=== PATIENT | male | born 1945 | race Caucasian/White ===

== ENCOUNTER 2020-05-16 07:25 | Day surgery (SDC) | payer MEDICARE, BC ==
[2020-05-13 16:03] VITALS: BMI 37.5
[2020-05-16 07:57] VITALS: TEMP 97.2
[2020-05-16] MEDS: LACTATED RINGERS 1,000 ML IV SCH ×2 (08:06→08:39)
--- NOTE | 2020-05-16 08:35 | P.GSHP ---
History of Present Illness H&P Date: 05/16/20 CHIEF COMPLAINT: GERD and colon screen HISTORY OF PRESENT ILLNESS: The patient is a 75-year-old male who presents with gastroesophageal reflux disease and need for colon screen. Upper and lower endoscopy were offered for further evaluation and management. PAST MEDICAL HISTORY: Please see list. PAST SURGICAL HISTORY: Please see list. MEDICATIONS: Please see list. ALLERGIES: Please see list. SOCIAL HISTORY: No illicit drug use FAMILY HISTORY: No reports of Crohn disease or ulcerative colitis. REVIEW OF ORGAN SYSTEMS: CONSTITUTIONAL: No reports of fevers or chills. GI: Denies any blood in stools or constipation. PHYSICAL EXAM: VITAL SIGNS: Stable GENERAL: Well-developed pleasant in no acute distress. HEENT: No scleral icterus. Extraocular movements grossly intact. Moist buccal mucosa. NECK: Supple without lymphadenopathy. CHEST: Unlabored respirations. Equal bilateral excursions. CARDIOVASCULAR: Regular rate and rhythm. Distal 2+ pulses. ABDOMEN: Soft, nondistended. MUSCULOSKELETAL: No clubbing, cyanosis, or edema. ASSESSMENT: 1. Gastroesophageal reflux disease 2. Colon screen. PLAN: 1. Recommend proceeding with an upper and lower endoscopy Past Medical History Past Medical History: Hearing Disorder / Deafness, Hyperlipidemia, Hypertension, Prostate Disorder, Sleep Apnea/CPAP/BIPAP Additional Past Medical History / Comment(s): has cpap machine History of Any Multi-Drug Resistant Organisms: None Reported Past Surgical History: Heart Catheterization Additional Past Surgical History / Comment(s): LESION ON BACK,LAPAROSCOPIC EXAM Past Anesthesia/Blood Transfusion Reactions: Motion Sickness Smoking Status: Former smoker - Past Family History Mother Family Medical History: Cancer Medications and Allergies Home Medications Medication Instructions Recorded Confirmed Type Aspirin 81 mg PO DAILY 09/02/15 05/16/20 History Lisinopril [Zestril] 20 mg PO DAILY 09/02/15 05/16/20 History Ezetimibe [Zetia] 10 mg PO DAILY 05/13/20 05/16/20 History Red Yeast Rice 600 mg PO DAILY 05/13/20 05/16/20 History Tamsulosin [Flomax] 0.4 mg PO DAILY 05/13/20 05/16/20 History Allergies Allergy/AdvReac Type Severity Reaction Status Date / Time No Known Allergies Allergy Verified 05/16/20 07:51 Surgical - Exam Vital Signs Temp Pulse Resp BP Pulse Ox 97.2 F L 92 16 121/81 95 05/16/20 07:56 05/16/20 07:56 05/16/20 07:56 05/16/20 07:56 05/16/20 07:56
[2020-05-16] MEDS ORDERED: PROPOFOL 10 MG/ML 20 ML VIAL IV ONE (08:40)
[2020-05-16] MEDS ORDERED: LIDOCAINE 1% INJ 10MG/ML (20 ML MDV) ONE (08:40)
[2020-05-16] MEDS ORDERED: GLYCOPYRROLATE 0.2 MG/ML 2 ML VIAL ONE (08:40)
--- NOTE | 2020-05-16 08:57 | P.PCN ---
Date of Procedure: 05/16/20 Description of Procedure: PREOPERATIVE DIAGNOSIS: Gastroesophageal reflux disease. Morbid obesity. POSTOPERATIVE DIAGNOSIS: Morbid obesity. Gastritis. Gastroesophageal reflux disease. OPERATION: Esophagogastroduodenoscopy with biopsies along antrum. SURGEON: Manju Yeh MD ANESTHESIA: MAC. INDICATIONS: The patient is a 75-year-old male who presents with a history of reflux disease. Benefits and risks of the procedure were described. Informed consent was obtained. DESCRIPTION: The patient was brought into the endoscopy suite and laid in the left lateral decubitus position. An Olympus gastroscope was passed along the posterior oropharynx down to the distal esophagus where the squamocolumnar junction was encountered at 42 cm from the incisors. The stomach was entered and no bile reflux was found. Additional findings are listed below. Biopsies with cold forceps were obtained of the antrum. The first through third portion of the duodenum was examined and unremarkable. Retroflexion of the scope confirmed Hill grade 2 lower esophageal valve. The squamocolumnar junction demonstrated no LA grade A erosive esophagitis. The stomach was desufflated. The patient tolerated the procedure well. FINDINGS: Squamocolumnar junction 42 cm from the incisors. Diaphragmatic hiatus at 42 cm. Hill grade 2 lower esophageal valve. No LA grade A erosive esophagitis. No active duodenitis. Chronic gastritis with recent bleed RECOMMENDATIONS: Upper endoscopy as needed.
--- NOTE | 2020-05-16 09:08 | P.PCN ---
Date of Procedure: 05/16/20 Description of Procedure: PREOPERATIVE DIAGNOSIS: Colonoscopy screening. POSTOPERATIVE DIAGNOSIS: Colonoscopy screening. OPERATION: Colonoscopy to the cecum, ileocecal valve and appendiceal orifice. SURGEON: Manju Yeh MD. ANESTHESIA: MAC. INDICATIONS: The patient is a 75-year-old male who presents for his first colonoscopy screening. Benefits and risks were described and informed consent was obtained. DESCRIPTION OF PROCEDURE: The patient had undergone Gatorade, MiraLAX and Dulcolax prep. He had been brought into the operating room and laid in the left lateral decubitus position. After adequate intravenous sedation, the rectum was examined with 2% lidocaine jelly. The prostate was without nodularity. No external hemorrhoids were encountered. The rectal tone was within normal limits. No lesions were palpated in the rectal vault. An Olympus colonoscope was advanced until the cecum, ileocecal valve and appendiceal orifice were clearly viewed. The prep was excellent. No scattered diverticulosis was encountered. No colonic polyps were found. No evidence of focal colitis was found. Retroflexion of the scope demonstrated grade 1 internal hemorrhoids without active bleeding or inflammation. The colon was desufflated. The patient had tolerated the procedure well. Withdrawal time was over 6 minutes. FINDINGS: Aronchick preparation quality scale 1 (1-5) Internal hemorrhoids, grade 1 No external prolapsed hemorrhoids. No arteriovenous malformations. No adenomatous polyps. No focal colitis. RECOMMENDATIONS: Lower endoscopy in 10 2019 Plan - Discharge Summary Discharge Rx Participant: No New Discharge Prescriptions: Continue Aspirin 81 mg PO DAILY Lisinopril [Zestril] 20 mg PO DAILY Tamsulosin [Flomax] 0.4 mg PO DAILY Red Yeast Rice 600 mg PO DAILY Ezetimibe [Zetia] 10 mg PO DAILY Discharge Medication List Aspirin 81 mg PO DAILY 09/02/15 [History] Lisinopril [Zestril] 20 mg PO DAILY 09/02/15 [History] Ezetimibe [Zetia] 10 mg PO DAILY 05/13/20 [History] Red Yeast Rice 600 mg PO DAILY 05/13/20 [History] Tamsulosin [Flomax] 0.4 mg PO DAILY 05/13/20 [History] Follow up Appointment(s)/Referral(s): Manju Yeh MD [STAFF PHYSICIAN] - 06/04/20 Patient Instructions/Handouts: *[facility] - (Anesthesia) Endoscopy Discharge Instructions Activity/Diet/Wound Care/Special Instructions: Repeat colonoscopy 10 years2019 Discharge Disposition: HOME SELF-CARE
[2020-05-16 09:27] VITALS: BP 121/88; PULSE 84; RESP 16
== END 2020-05-16 09:57 | disposition home or self-care (01) ==
LOC: ORWHC2ENDO 07:25
PROVIDERS: ATTEND Surgery Plastic and Reconstructive Surgery
DX: Z12.11 Encounter for screening for malignant neoplasm of colon (principal); K57.30 Diverticulosis of large intestine without perforation or abscess without bleeding; K64.0 First degree hemorrhoids; K29.50 Unspecified chronic gastritis without bleeding; E66.01 Morbid (severe) obesity due to excess calories; Z68.37 Body mass index [BMI] 37.0-37.9, adult; K21.9 Gastro-esophageal reflux disease without esophagitis; H91.90 Unspecified hearing loss, unspecified ear; E78.5 Hyperlipidemia, unspecified; N40.0 Benign prostatic hyperplasia without lower urinary tract symptoms; I10 Essential (primary) hypertension; G47.33 Obstructive sleep apnea (adult) (pediatric); Z99.89 Dependence on other enabling machines and devices; Z98.890 Other specified postprocedural states; Z87.891 Personal history of nicotine dependence; Z80.9 Family history of malignant neoplasm, unspecified; Z79.82 Long term (current) use of aspirin; Z79.899 Other long term (current) drug therapy
CPT/HCPCS: 88305; 43239; J2001; J2704; G0121

== ENCOUNTER → 2020-06-10 | Outpatient (CLI) | payer MEDICARE, BC ==
--- NOTE | 2020-06-10 09:51 | NM ---
EXAMINATION TYPE: NM hepatobiliary w EF DATE OF EXAM: 06/10/2020 COMPARISON: NONE HISTORY: Right upper quadrant pain TECHNIQUE: After the intravenous administration of 4.5 mCi Tc 99m Mebrofenin hepatobiliary scintigrap hy is performed. Immediate images post injection. FINDINGS: There is satisfactory initial accumulation of tracer by the liver. The gallbladder is visualized wit hin 26 minutes. The small bowel activity is noted within 12 minutes. At one hour 8 ounces of oral e nsure plus is given to mimic CCK and gallbladder ejection fraction is calculated at 47 %, in the norm al range. Therefore there is no scintigraphic evidence of cystic or common bile duct obstruction to suggest acute cholecystitis or gallbladder dyskinesia. IMPRESSION: Exam is within normal limits.
== END | disposition home or self-care (01) ==
LOC: RADNMMAIN 06:35
PROVIDERS: ATTEND Surgery Plastic and Reconstructive Surgery
DX: R10.11 Right upper quadrant pain (principal)
CPT/HCPCS: 78226; A9537

== ENCOUNTER → 2020-06-18 | Outpatient (CLI) | payer MEDICARE, BC ==
--- NOTE | 2020-06-18 11:05 | US ---
EXAMINATION TYPE: US gallbladder DATE OF EXAM: 06/18/2020 COMPARISON: NONE CLINICAL HISTORY: 75-year-old male R10.11 right upper quad pain. TECHNIQUE: Multiple sonographic images of the right or quadrant are obtained. FINDINGS: EXAM MEASUREMENTS: Liver Length: 13.9 cm Gallbladder Wall: 0.3 cm CBD: obscured by overlying bowel/obesity Right Kidney: 12.6 x 6.0 x 5.5 cm Director Industrial Relations notes: Limitation due to morbid obesity with large abdomen and severe overlying bowel gas . Pancreas: Obscured by bowel gas Liver: very limited visualization, attenuating, probable focal fatty sparing adjacent to gallbladder . Gallbladder: 3 mm echogenic nodular focus along the right lateral gallbladder wall shows no posterior shadowing, possible gallbladder wall polyp. No abnormal gallbladder distention. Wall thickness is up per limits of normal at 3 mm. No surrounding fluid. Evidence for sonographic Bentley's sign: no CBD: unable to visualize Right Kidney: Hypoechoic round lesion measuring 5.7 x 4.7 x 5.7 cm. No hydronephrosis. IMPRESSION: 1. Limited exam as above. 2. Moderate to severe hepatic steatosis. 3. Suspect a 3 mm gallbladder wall polyp. 3 month follow-up ultrasound recommended to reassess. 4. The bile duct could not be visualized due to the exam limitations. 5. A large 5.7 cm round lesion involving the lower pole of the right kidney. Suspect a cyst with inte rnal echoes representing debris. This should also be reassessed at the 3 month follow-up as well as a solid mass is a less likely possibility.
== END | disposition home or self-care (01) ==
LOC: RADUSWWP 07:03
PROVIDERS: ATTEND Surgery Plastic and Reconstructive Surgery
DX: K76.0 Fatty (change of) liver, not elsewhere classified (principal); E66.01 Morbid (severe) obesity due to excess calories; K82.8 Other specified diseases of gallbladder; N28.9 Disorder of kidney and ureter, unspecified
CPT/HCPCS: 76705

== ENCOUNTER 2020-09-26 10:21 | Day surgery (SDC) | payer MEDICARE, BC ==
[2020-09-20 14:40] VITALS: BMI 37.5
--- NOTE | 2020-09-26 05:54 | P.GSHP ---
History of Present Illness H&P Date: 09/26/20 CHIEF COMPLAINT: Cholecystitis HISTORY OF PRESENT ILLNESS: The patient is a 75-year-old male who presents with history of epigastric including right upper quadrant abdominal pain. He underwent diagnostic studies for the gallbladder. Separately his clinical picture was consistent with cholecystitis. Now he presents for surgical intervention. PAST MEDICAL HISTORY: Please see list PAST SURGICAL HISTORY: Please see list MEDICATIONS: Please see list ALLERGIES: Denies. SOCIAL HISTORY: No illicit drug use or recent tobacco use FAMILY HISTORY: Pertinent for gallbladder disease REVIEW OF ORGAN SYSTEMS: CONSTITUTIONAL: No reports of fevers or chills. HEENT: Denies any troubles with the vision or hearing. RESPIRATORY: No recent pneumonias. CARDIOVASCULAR: Denies current chest pain or palpitations GI: No blood in stools or constipation. MUSCULOSKELETAL: Has occasional joint pain including back pain. PHYSICAL EXAM: VITAL SIGNS: Afebrile vital signs stable GENERAL: Well-developed pleasant male in no acute distress. HEENT: No scleral icterus. Extraocular movements grossly intact. Moist buccal mucosa. NECK: Supple without lymphadenopathy. CHEST: Unlabored respirations. Equal bilateral excursions. CARDIOVASCULAR: Regular rate regular rhythm rhythm. Distal 2+ pulses. ABDOMEN: Soft, nondistended. MUSCULOSKELETAL: No clubbing, cyanosis, or edema. NEURO : No focal or lateralizing signs. Cranial nerves II-12 within normal limits. PSYCH: Alert and oriented to person, place and time. SKIN: Well perfused. Good skin turgor. ASSESSMENT: 1. Symptomatic gallstones PLAN: 1. Will need a robotic cholecystectomy possible open. Benefits and risks were described. 2. Heparin for DVT prophylaxis 5000 units. 3. Antibiotic prophylaxis. Past Medical History Past Medical History: Hearing Disorder / Deafness, Hyperlipidemia, Hypertension, Prostate Disorder, Sleep Apnea/CPAP/BIPAP Additional Past Medical History / Comment(s): gallstone, has cpap machine, History of Any Multi-Drug Resistant Organisms: None Reported Past Surgical History: Heart Catheterization Additional Past Surgical History / Comment(s): LESION ON BACK, Past Anesthesia/Blood Transfusion Reactions: No Reported Reaction Smoking Status: Former smoker - Past Family History Mother Family Medical History: Cancer Medications and Allergies Home Medications Medication Instructions Recorded Confirmed Type Aspirin 81 mg PO DAILY 09/02/15 09/20/20 History Lisinopril [Zestril] 20 mg PO QAM 09/02/15 09/20/20 History Ezetimibe [Zetia] 10 mg PO DAILY 05/13/20 09/20/20 History Red Yeast Rice 600 mg PO DAILY 05/13/20 09/20/20 History Tamsulosin [Flomax] 0.4 mg PO DAILY 05/13/20 09/20/20 History [place]-3 Fatty Acids/Fish Oil [Fish 1 each PO DAILY 09/20/20 09/20/20 History Oil 1,000 mg Softgel] Allergies Allergy/AdvReac Type Severity Reaction Status Date / Time Actfdai-Caf-Qgv Reductase AdvReac muscle pain Verified 09/20/20 14:43 Inhibitor
[~2020-09-26 10:21] MED LIST: DEXAMETHASONE SOD PHOSPHATE 4 MG/ML 1 ML VIAL IV ONE; HEPARIN SODIUM,PORCINE 5,000 UNIT/ML 1 ML VIAL SQ PRN; LACTATED RINGERS 1,000 ML IV SCH; LIDOCAINE 1% (10MG/ML) FOR IV START INTRADERMA PRN; ONDANSETRON 4 MG/2 ML VIAL IVP ONE
[2020-09-26] MEDS ORDERED: INDOCYANINE GREEN 25 MG VIAL IV PRN (10:50)
[2020-09-26] MEDS ORDERED: TAMSULOSIN 0.4 MG CAP.ER.24H PO PRN (10:50)
[2020-09-26] MEDS ORDERED: MELOXICAM 7.5 MG TAB PO PRN (10:50)
[2020-09-26] MEDS ORDERED: ACETAMINOPHEN TAB 500 MG TAB PO PRN (10:50)
[2020-09-26 11:43] LABS: Basophils % (A) 0 %; Eosinophils # (A) 0.1 k/uL (0-0.7); Eosinophils % (A) 2 %; HCT 45.9 % (39.0-53.0); HGB 15.1 gm/dL (13.0-17.5); Lymphocytes # (A) 2.4 k/uL (1.0-4.8); Lymphocytes % (A) 33 %; MCHC 32.8 g/dL (31.0-37.0); MCV 91.2 fL (80.0-100.0); Mean Platelet Volume 7.6; Monocytes # (A) 0.4 k/uL (0-1.0); Monocytes % (A) 6 %; Neutrophils # (A) 4.1 k/uL (1.3-7.7); Neutrophils % (A) 57 %; Platelet Count 224 k/uL (150-450); RBC 5.03 m/uL (4.30-5.90); RDW 12.7 % (11.5-15.5); WBC 7.2 k/uL (3.8-10.6)
[2020-09-26 11:53] LABS: ALT 26 U/L (4-49); AST 23 U/L (17-59); African American GFR (CKD) >90 (>60 ml/min/1.73 sqM); Albumin 4.2 g/dL (3.5-5.0); Alkaline Phosphatase 63 U/L (38-126); Anion Gap 10 mmol/L; Blood Urea Nitrogen 16 mg/dL (9-20); Calcium 9.5 mg/dL (8.4-10.2); Carbon Dioxide 26 mmol/L (22-30); Chloride 104 mmol/L (98-107); Glucose 98 mg/dL (74-99); Non-African American GFR(CKD) 85 (>60 ml/min/1.73 sqM); Potassium 4.3 mmol/L (3.5-5.1); Sodium 140 mmol/L (137-145); Total Bilirubin 0.7 mg/dL (0.2-1.3); Total Protein 6.8 g/dL (6.3-8.2)
[2020-09-26] MEDS ORDERED: PHENYLEPHRINE-0.9% NACL SYG 1,000 MCG/10 ML SYRINGE ONE (12:59)
[2020-09-26] MEDS ORDERED: ePHEDrine SULFATE/0.9% NACL/PF 50 MG/5 ML SYRINGE IV ONE (12:59)
[2020-09-26] MEDS ORDERED: LIDOCAINE 1% INJ 10MG/ML (20 ML MDV) ONE (12:59)
[2020-09-26] MEDS ORDERED: PROPOFOL 10 MG/ML 20 ML VIAL IV ONE (12:59)
[2020-09-26] MEDS ORDERED: ROCURONIUM 10 MG/ML (5 ML VIAL) IV ONE (12:59)
[2020-09-26] MEDS ORDERED: MIDAZOLAM 2 MG/2 ML VIAL ONE (12:59)
[2020-09-26] MEDS ORDERED: GLYCOPYRROLATE 0.2 MG/ML 2 ML VIAL ONE (12:59)
[2020-09-26] MEDS ORDERED: SUCCINYLCHOLINE CHLORIDE 100 MG/5 ML SYR IV ONE (12:59)
[2020-09-26] MEDS ORDERED: fentaNYL (PF) 50 MCG/ML 2 ML AMP ONE (12:59)
[2020-09-26] MEDS ORDERED: NEOSTIGMINE 1 MG/ML 10 ML VIAL ONE (12:59)
[2020-09-26] MEDS ORDERED: BUPIVACAIN-EPI 0.5%-1:200,000 30 ML VIAL SQ ONE (13:28)
[2020-09-26 14:21] VITALS: TEMP 97.8
[2020-09-26] MEDS ORDERED: HYDROmorphone 1 MG/ML 1 ML SYRINGE IVP ONE (14:22)
[2020-09-26] MEDS: HYDROmorphone 0.5 MG/0.5 ML SYRINGE IVP PRN ×3 (14:28→14:40)
--- NOTE | 2020-09-26 14:30 | P.OP ---
Date of Procedure: 09/26/20 Description of Procedure: SURGEON: MANJU YEH MD PREOPERATIVE DIAGNOSES: 1. Chronic cholecystitis 2. Right upper quadrant abdominal pain 3. Hypertensive heart disease 4. Obstructive uropathy due to prostate disorder 5. Morbid obesity due to excess calories, BMI 38.5 6. Obstructive sleep apnea 7. Hyperlipidemia POSTOPERATIVE DIAGNOSES: 1. Chronic cholecystitis 2. Right upper quadrant abdominal pain 3. Hypertensive heart disease 4. Obstructive uropathy due to prostate disorder 5. Morbid obesity due to excess calories, BMI 38.5 6. Obstructive sleep apnea 7. Hyperlipidemia 8. Peritoneal adhesions bilateral lower abdomen 9. Peritoneal adhesions right upper quadrant 10. Hepatomegaly OPERATION: 1. Robotic-assisted da Olesya Xi laparoscopic lysis of adhesions 2. Robotic-assisted da Olesya Xi laparoscopic cholecystectomy, multiport with FIREFLY ESTIMATED BLOOD LOSS: 5 mL. SPECIMENS REMOVED: Gallbladder. COMPLICATIONS: None. OPERATIVE FINDINGS: 1. Hepatomegaly with fatty liver disease with adhesions right upper quadrant and bilateral lower abdomen INDICATIONS: The patient is a 75-year-old male who presents with symptomatic gallstones. Robotic assisted laparoscopic approach was described. Benefits and risks of the procedure including but not limited to bleeding, infection, injury to the biliary tree was described. Informed consent was obtained. DESCRIPTION OF PROCEDURE: Patient was brought to the operating room, placed in supine position. After general induction, the abdomen had been prepped and draped in standard sterile fashion. The robotic da Olesya XI system was primed. After a timeout protocol was performed, the patient had been prepped and draped in standard sterile fashion. The patient was injected with indocyanine green. A 5 mm 0 degrees laparoscopic trocar entry was performed along the left upper quadrant. The abdomen insufflated to 15 mmHg pressure which was tolerated well. Diagnostic laparoscopy demonstrated no injury to bowel viscera or mesentery. The liver was enlarged with hepatomegaly. Adhesions are found along the bilateral lower abdomen including right upper abdomen. Next, two 8 mm robotic ports were placed along the right upper abdomen. The camera 8-mm port was maintained along the epigastrium. Another 8 mm port was placed along the left upper abdominal wall after exchanging the 5 mm port. Please note that the ports were placed at least 10 to 15 cm away from the target anatomy of the gallbl adder. The robot was docked along the left lateral abdomen. The patient was repositioned in reverse Trendelenburg position. Using a grasper for arm 3, a grasper for arm 4, including hook cautery for arm 1, the robotic system was docked and primed as described. Instruments were interchanged by the cardiovascular physician assistant including hook cautery, Bovie cautery and clip appliers. I had sat at the console. The gallbladder was scarred with peritoneal adhesions. Lysis of adhesions was performed to free the gallbladder from the surrounding tissues. Next attention was brought to the infundibulum and cystic structures. The infundibulum and cystic duct were dissected free from surrounding tissues. The cystic duct was isolated. FIREFLY was used to identify the cystic artery and cystic structures. A critical view of safety was obtained. Large PLASTIC clips were used throughout the entire case. Using a clip shoer, 2 clips were placed at the junction of the infundibulum and cystic duct. The cystic duct was divided between clips. Next, the cystic artery was similarly clipped and cauterized. Electro-Bovie cautery was used to remove the gallbladder from the hepatic fossa. Hemostasis was checked and found to be adequate. The robot was undocked. I re-scrubbed into the case. Using a 10 mm Endo Catch bag via the left upper quadrant incision, the specimen was removed from the abdominal cavity. All pneumoperitoneum instruments were evacuated from the abdominal cavity. The incisions were reapproximated using 4-0 Monocryl in an interrupted subcuticular fashion. Fascial defects were less than 8 mm in size. Please note along the trocar sites, local anesthetic was placed as a field block prior to insertion of all instruments. Liquid glue was applied to the skin. At the end of the procedure needle, sponge, and instrument count had been verified correct by the surgical physician assistant. The patient was transferred to postanesthesia care unit in stable condition. Intraoperative films were shared with the patient's family. Plan - Discharge Summary Discharge Rx Participant: No New Discharge Prescriptions: New Ibuprofen [Motrin] 600 mg PO Q8HR PRN #30 tab PRN Reason: Pain Acetaminophen Tab [Tylenol Tab] 1,000 mg PO Q6HR PRN #30 tablet PRN Reason: Pain Continue Aspirin 81 mg PO DAILY Lisinopril [Zestril] 20 mg PO QAM Tamsulosin [Flomax] 0.4 mg PO DAILY Red Yeast Rice 600 mg PO DAILY Ezetimibe [Zetia] 10 mg PO DAILY [place]-3 Fatty Acids/Fish Oil [Fish Oil 1,000 mg Softgel] 1 each PO DAILY Discharge Medication List Aspirin 81 mg PO DAILY 09/02/15 [History] Lisinopril [Zestril] 20 mg PO QAM 09/02/15 [History] Ezetimibe [Zetia] 10 mg PO DAILY 05/13/20 [History] Red Yeast Rice 600 mg PO DAILY 05/13/20 [History] Tamsulosin [Flomax] 0.4 mg PO DAILY 05/13/20 [History] [place]-3 Fatty Acids/Fish Oil [Fish Oil 1,000 mg Softgel] 1 each PO DAILY 09/20/20 [History] Acetaminophen Tab [Tylenol Tab] 1,000 mg PO Q6HR PRN #30 tablet 09/26/20 [Rx] Ibuprofen [Motrin] 600 mg PO Q8HR PRN #30 tab 09/26/20 [Rx] Follow up Appointment(s)/Referral(s): Manju Yeh MD [STAFF PHYSICIAN] - 10/01/20 Patient Instructions/Handouts: Laparoscopic Cholecystectomy (DC) Activity/Diet/Wound Care/Special Instructions: No lifting over 10 pounds in 2 weeks until October 10. November shower. No bath tub soaks for two weeks until October 10. Diet as tolerated. No driving while on narcotics. Use Tylenol and ibuprofen or Aleve scheduled for the next 24-48 hours for best pain relief. Use ice along incisions for today to prevent swelling. For today, avoid high fat foods Discharge Disposition: HOME SELF-CARE
[2020-09-26 15:29] VITALS: RESP 16
[2020-09-26] MEDS ORDERED: IBUPROFEN 200 MG TAB PO ONE (15:38)
[2020-09-26 16:06] VITALS: BP 147/71; PULSE 90
[2020-09-26] MEDS ORDERED: ONDANSETRON 4 MG/2 ML VIAL ONE (16:36)
[2020-09-26] MEDS ORDERED: ONDANSETRON 4 MG/2 ML VIAL IVP ONE (16:39)
== END 2020-09-26 16:56 | disposition home or self-care (01) ==
LOC: OR 10:21
PROVIDERS: ATTEND Surgery Plastic and Reconstructive Surgery
DX: K81.1 Chronic cholecystitis (principal); K66.0 Peritoneal adhesions (postprocedural) (postinfection); N13.9 Obstructive and reflux uropathy, unspecified; N42.9 Disorder of prostate, unspecified; I11.9 Hypertensive heart disease without heart failure; E66.01 Morbid (severe) obesity due to excess calories; Z68.38 Body mass index [BMI] 38.0-38.9, adult; E78.5 Hyperlipidemia, unspecified; Z99.89 Dependence on other enabling machines and devices; G47.33 Obstructive sleep apnea (adult) (pediatric); R16.0 Hepatomegaly, not elsewhere classified; H91.90 Unspecified hearing loss, unspecified ear; Z98.890 Other specified postprocedural states; Z87.891 Personal history of nicotine dependence; Z80.9 Family history of malignant neoplasm, unspecified; Z79.82 Long term (current) use of aspirin; Z79.899 Other long term (current) drug therapy; Z88.8 Allergy status to other drugs, medicaments and biological substances
CPT/HCPCS: 47562; S2900; 80053; 85025; 88304; 93005